=== PATIENT | female | born 1975 | race Caucasian/White ===

== ENCOUNTER → 2024-07-08 09:50 | Outpatient (REF) | payer OTHER, SELFPAY | LOC: RCS 09:50 | PROVIDERS: ATTENDING PHYSICIAN Internal Medicine; FAMILY PHYSICIAN Family Medicine | DX: R07.9 Chest pain, unspecified (principal) | CPT/HCPCS: 93017 ==

== ENCOUNTER → 2024-07-16 09:02 | Outpatient (REF) | payer OTHER, SELFPAY | LOC: RSP 09:02 | PROVIDERS: ATTENDING PHYSICIAN Internal Medicine; FAMILY PHYSICIAN Family Medicine | DX: Z72.89 Other problems related to lifestyle (principal) | CPT/HCPCS: 94727; 94729; 88738; 94010 ==

== ENCOUNTER → 2024-07-29 11:01 | Outpatient (REF) | payer OTHER, SELFPAY | LOC: HWRCS 11:01 | PROVIDERS: ATTENDING PHYSICIAN Internal Medicine; FAMILY PHYSICIAN Family Medicine | DX: R07.9 Chest pain, unspecified (principal) | CPT/HCPCS: 93306 ==

== ENCOUNTER → 2024-08-10 10:03 | Outpatient (REF) | payer OTHER, SELFPAY | LOC: RCS 10:03 | PROVIDERS: ATTENDING PHYSICIAN Internal Medicine; FAMILY PHYSICIAN Family Medicine | DX: R07.9 Chest pain, unspecified (principal); R00.2 Palpitations | CPT/HCPCS: 93225; 93226 ==

== ENCOUNTER 2025-07-03 17:52 | Emergency (ER) | payer OTHER, SELFPAY ==
[2025-07-03 18:00] VITALS: BP 111/70
[2025-07-03 19:06] VITALS: BMI 25.8
[2025-07-03] MEDS: TORADOL 15 MG IV (19:40)
[2025-07-03 19:55] LABS: Urine Character Clear (Clear)
[2025-07-03 19:58] LABS: Hematocrit 43.9 % (37.0-47.0); Hemoglobin 14.7 g/dL (12.0-16.0); Mean Corp Hgb Conc. 33.5 g/dL (33.0-37.0); Mean Corpuscular Volume 92.2 fL (81.0-99.0); Nucleated Red Blood Cells % 0 %; Platelet Count 214 10^3/uL (130-400); Red Cell Dist. Width 12.0 % (11.5-14.5)
[2025-07-03 20:02] LABS: Urine White Cell 0-2 /HPF (0-5)
[2025-07-03 20:04] VITALS: BP 103/59
[2025-07-03 20:08] LABS: HCG, Serum Qualitative Screen Negative
[2025-07-03 20:09] LABS: D-Dimer 0.56 ug/mlFEU (0.00-0.50)
[2025-07-03 20:13] LABS: ALT (SGPT) 21 U/L (0-35); AST (SGOT) 25 U/L (14-36); Albumin 4.9 g/dl (3.5-5.0); Alkaline Phosphatase 58 U/L (38-126); Blood Urea Nitrogen 19 mg/dl (7-17); Calcium 9.9 mg/dl (8.4-10.2); Carbon Dioxide 28 mmol/L (22-30); Chloride 102 mmol/L (98-107); Estimated Creatinine Clearance 67 ml/min; Glucose 102 mg/dl (70-99); Potassium 4.1 mmol/L (3.5-5.1); Sodium 139 mmol/L (135-145); Total Protein 7.6 g/dl (6.3-8.2); eGFR > 60.00
[2025-07-03 21:00] VITALS: BP 101/67
[2025-07-03 23:00] VITALS: BP 100/58
--- NOTE | 2025-07-03 23:42 | ED.GENMED ---
History of Present Illness
General
Chief Complaint: Flank Pain
Source: patient and spouse
Exam Limitations: none
Time Seen by Provider: 07/03/25 19:03
History of Present Illness
History of Present Illness:
Note:
CHIEF COMPLAINT(S)
Right-sided back pain worsening with deep inspiration and movement, associated with muscle spasms.
HISTORY OF PRESENT ILLNESS
The patient is a 49-year-old female with a history of lupus and antiphospholipid syndrome, presenting with right-sided back pain worsening over the last four days. The symptoms began at the end of May following a viral-like illness
characterized by a headache and sore throat, which the patient initially suspected to be COVID-19; however, multiple COVID-19 tests were negative, as were influenza tests. The respiratory symptoms were mild, including occasional sneezing.
Subsequently, the patient experienced significant fatigue and was bedridden. The patient reports a flare-up of muscle spasms in the right trapezius, for which she took diazepam and prednisone taper, leading to partial relief.
Approximately four days prior to the visit, she developed right-sided flank pain, exacerbated by coughing, sneezing, or deep breathing. She describes the pain as being clae to 'a back contraction from labor,' which lasted for two minutes and
subsided. She reports an incident of feeling as though her consciousness was leaving her body, described as not exactly dizziness but cale to a pre-fainting sensation, occurring while eating at a restaurant two days ago.
A recent chest X-ray showed no signs of pneumonia, but blood was noted in the urine during analysis at an urgent care center. The patient has not experienced shortness of breath, fevers, or hemoptysis. She is awaiting follow-up appointments with a
aquaculture farmer for further evaluation of previously abnormal pulmonary function tests, possibly related to her history of antiphospholipid syndrome and lupus.
The patient is currently on baby aspirin but is concerned about the potential for blood clots given her history of antiphospholipid syndrome.
PAST MEDICAL AND SURGICAL HISTORY
- Lupus
- Antiphospholipid syndrome
- Previous evaluation for transient ischemic attack (TIA)
MEDICATIONS
- Diazepam as needed for muscle spasms
- Prednisone taper
- Baby aspirin
REVIEW OF SYSTEMS
- General: Fatigue, no reported fevers
- Musculoskeletal: Muscle spasms, particularly in the right trapezius
- Respiratory: Right-sided pain during deep breathing, coughing, and sneezing
- Neurological: Pre-fainting sensation, no seizures or confirmed stroke
- Genitourinary: Recent blood in urine noted during urinalysis
PHYSICAL EXAM
General: Alert, no acute distress.
Skin: Warm, dry.
Head: Normocephalic, atraumatic.
Neck: Supple, trachea midline.
Eye Ears, nose, mouth and throat: Oral mucosa moist.
Cardiovascular: Heart rate of 60 bpm, normal peripheral perfusion, no edema, heart normal, regular without murmurs.
Respiratory: Respirations non-labored, lungs clear on auscultation, no wheezing or crackles.
Gastrointestinal: Abdomen nondistended.
Back: Tenderness on the right side exacerbated by deep breathing.
Musculoskeletal: Normal range of motion, normal strength.
Neurological: Alert and oriented to person, place, time, and situation, no focal neurological deficit observed.
Psychiatric: Cooperative, appropriate mood and affect.
PLAN
- Obtain complete blood count (CBC), complete metabolic profile, and D-dimer to rule out blood clot given history and symptoms.
- Urinalysis to investigate the presence of blood in urine.
- Consider chest computed tomography if D-dimer is abnormal to evaluate for possible pulmonary embolism.
- Administer diazepam and analgesics as needed for muscle spasm and pain management.
- Follow up with rheumatology and pulmonology for further management of underlying conditions including lupus and antiphospholipid syndrome.
- Discuss with the patient the importance of follow-up appointments for pulmonary and cardiac evaluation.
DIFFERENTIAL DIAGNOSIS
The Differential Diagnosis includes, in no particular order and is not limited to:
1. Musculoskeletal strain or intercostal muscle spasm
2. Pleuritis or costochondritis
3. Pulmonary embolism
4. Lupus flare
5. Atypical chest pain due to antiphospholipid syndrome
6. Renal pathology (e.g., nephrolithiasis, given blood in urine)
7. Myocardial ischemia
8. Acute anxiety or panic disorder
9. Reactive airway disease or asthma exacerbation
10. Rare neurological event related to antiphospholipid syndrome
CARE-UPDATE
07/03/25 - 20:45
The patients d-dimer levels are slightly elevated, but given the absence of symptoms such as unilateral leg swelling or pain, a blood clot in the legs is not suspected. However, a CT scan of the chest with IV contrast is ordered to assess the blood
vessels and rule out any pulmonary embolism or other abnormalities such as pneumonia, collapsed lung, rib fracture, or pericardial effusion. The procedure will be performed with considerations for cardiac output timing to ensure optimal imaging.
Although the possibility of a blood clot is considered unlikely, the patient was informed of potential management options, including the use of blood thinners such as Eliquis, Xarelto, or Pradaxa, should a clot be detected. Existing kidney function
is deemed adequate, allowing safe use of IV contrast. The patient is reassured not to worry prematurely about potential findings, as her clinical presentation does not strongly suggest thrombosis.
Disposition:
SUMMARY OF ENCOUNTER
A 49-year-old patient presented with back pain, seemingly musculoskeletal in nature. A CT angiography (CTA) was performed and was negative for pulmonary embolism. CBC and CMP results were normal, and there were no concerns for a cardiac etiology.
DISPOSITION
Discharge
PLAN
The patient is cleared for discharge with appropriate follow-up care as needed.
INDEPENDENT REVIEW OF LABS AND INTERPRETATION OF TESTS
My independent review of the CTA indicates no pulmonary embolism.
My independent review of the CBC is normal.
My independent review of the CMP is normal.
PATIENT EDUCATION AND COUNSELING
The patient was informed that their back pain is likely musculoskeletal in nature and was reassured about the absence of a pulmonary embolism or cardiac concerns. Advised to monitor symptoms and follow up with primary care for ongoing management.
FOLLOW-UP INSTRUCTIONS
Instructed to follow up with primary care as needed.
MEDICAL DECISION MAKING
1. Number and Complexity of Problems Addressed: Chronic conditions affecting care [Patient presented with back pain]
2. Data:
Category 1
- My independent interpretation of the CTA was negative for pulmonary embolism.
- My independent interpretation of CBC and CMP reveals normal results.
3. Risk:
Consideration of Admission/Observation: Escalation of care including admission/observation was considered given the complexity and risk of the patients presenting complaint, exam findings, and/or their underlying comorbidities. However, ultimately I
feel the patient is safe for outpatient management with close follow-up. Reasoning: Work-up reassuring, does not reveal any acute life/organ-threatening processes, patients symptoms well controlled upon reevaluation, reexamination is reassuring,
vitals are stable, patient agreeable with discharge, reliable for follow-up.
DIAGNOSIS
Back pain
Past History
Past History
ED Past Medical History: Psychiatric (Anxiety) and Other (Antiphospholipid syndrome, 'Recurrent URIs', chronic neck pain/narcotic dependent, fibromyalgia)
ED Past Surgical History: and Other ([place] teeth removed)
Social History
Tobacco: Smoker
Alcohol: Occasional
Drug: None
Personal:
Living: with family
Employment: Employed
Family History
Family History: Negative Sudden
Phy Exam
Physical Exam
Physical Exam:
.
Course
Orders/Labs/Results
Orders:
Orders
07/03/25 19:33
Ketorolac [Toradol] 15 mg IV NOW STA
07/03/25 19:34
Test Result ONCE
07/03/25 19:47
Complete Blood Count/With Diff Urgent
Comprehensive Metabolic Panel Urgent
D-Dimer Urgent
HCG, Serum Qualitative Screen Urgent
Urinalysis Reflex To Culture Urgent
Date Specimen was Collected: 07/03/25
Time Specimen was Collected: 19:38
Urine Microscopic Reflex Cult Urgent
Urine Culture Urgent
GRADY Source: U
Specimen Description:
Date Specimen was Collected: 07/03/25
Time Specimen was Collected: 19:38
07/03/25 21:17
CT Chest PE Study Urgent
Comment:
Reason For Exam: pleuritic cp,elevated DDIMer
Abnormal Lab Results
07/03/25
19:47
D-Dimer 0.56 H ug/mlFEU
(0.00-0.50)
BUN 19 H mg/dl
(7-17)
Glucose 102 H mg/dl
(70-99)
Leukocyte Esterase Rfl 1+ A
(Negative)
Urine RBC 3-6 A /HPF
(0-2)
Urine Bacteria (Reflex) Moderate A
(Negative)
07/03/25 19:47
07/03/25 19:47
Vital Signs
Initial and Last Documented VS:
Initial Vital Signs
Temp Pulse Resp BP Pulse Ox
98.4 F 66 20 111/70 95
07/03/25 18:00 07/03/25 18:00 07/03/25 18:00 07/03/25 18:00 07/03/25 18:00
Last Documented Vital Signs
Temp Pulse Resp BP Pulse Ox
98.4 F 69 14 100/58 93
07/03/25 18:00 07/03/25 23:15 07/03/25 23:15 07/03/25 23:00 07/03/25 23:43
*Pulse Oximetry
SaO2: 93
Oxygen Mode of Delivery: Room air
Patient hypoxic: no
*Critical Care Note
Total Time (30-74mins, 75-104mins- exclusive of procedures): Not Applicable
ED Attending Note
-
Portions of this chart may have been created with voice recognition software.� Occasional wrong word or��sound alike� substitutions may have occurred due to the inherent limitations of voice recognition software.
Discharge Plan
Departure
Patient Disposition: Home (Routine Discharge)
Date of Disposition: 07/03/25
Time of Disposition: 23:49
Patient with high blood pressure during this ER visit?: No
Discharge Problem:
Back pain
Instructions: Back Pain
Prescriptions:
No Action
Aspirin
81 mg PO HS
Patient Comments:
81-650
mg PRN
diazepam 5 MG tablet
5 mg PO HS
Plaquenil
100 mg PO DAILY
Referrals:
Adelia Askew DO [Family Provider, Family Practice]
Activity Restrictions/Additional Instructions:
Be sure to have your urine rechecked in the next 2 to 3 weeks to ensure that the red blood cells in your urine have cleared
Return immediately for chest pain, shortness of breath, fevers or any other concerns. Please see your doctor in the next 3 to 5 days for follow-up and reevaluation
Interventions
Interventions:
*Risk Screen - Suicide Last Done: 07/03/25 18:00
*General Assessment Last Done: 07/03/25 19:07
*Neglect/Abuse Screening Last Done: 07/03/25 18:00
*ED- Fall Risk Assessment Last Done: 07/03/25 19:07
*ED COVID-19 Vaccine History Last Done: 07/03/25 19:07
*ED Influenza Vaccine History Last Done: 07/03/25 19:07
KW-Ldwgwg-Hmccvsbdxz Assessment Last Done: 07/03/25 18:59
ED-Female Genitourinary Assessment Last Done: 07/03/25 18:59
Discharge Date and Time
Print Language: NICARAG[place]
== END 2025-07-04 00:05 | disposition home or self-care (01) ==
LOC: EMR 17:52
PROVIDERS: EMERGENCY PHYSICIAN Emergency Medicine; FAMILY PHYSICIAN Family Medicine
DX: M54.9 Dorsalgia, unspecified (principal); M62.838 Other muscle spasm; F17.200 Nicotine dependence, unspecified, uncomplicated; Z79.82 Long term (current) use of aspirin
CPT/HCPCS: 99285; 96374; 71275; 80053; 81003; 81015; 84703; 85025; 85379; 87086; Q9967